=== PATIENT | female | born 1930 | race Caucasian/White ===

== ENCOUNTER 2016-08-06 17:13 | Emergency (ER) | payer MEDICARE, MEDICAID | END 2016-08-06 20:49 | disposition home or self-care (01) | LOC: ER 17:13 | DX: K60.1 Chronic anal fissure (principal); K62.5 Hemorrhage of anus and rectum; Z79.899 Other long term (current) drug therapy; E03.9 Hypothyroidism, unspecified; E78.00 Pure hypercholesterolemia, unspecified; I10 Essential (primary) hypertension | CPT/HCPCS: 36415; 80053; 85025; 85610; 85730 ==